=== PATIENT | female | born 1945 | race Caucasian/White ===

== ENCOUNTER 2022-01-30 17:49 | Inpatient (IN) | payer OTHER ==
[~2022-01-30] VITALS: Ht 160 cm; Wt 68.9 kg
[2022-01-30 19:40] VITALS: BP_SYST 176
[2022-01-30] MEDS ORDERED: METO25TA3 PO (19:46)
[2022-01-30] MEDS ORDERED: ATOR40TA68 PO (19:46)
[2022-01-30] MEDS ORDERED: ASPI-1393 PO (19:47)
[2022-01-30] MEDS ORDERED: FURO-150 PO (19:47)
[2022-01-30] MEDS ORDERED: HYDR25TA4 PO (19:47)
--- NOTE | 2022-01-30 19:48 | NUR ---
Patient triaged and placed in waiting room. VS CHECKED and patient appears in no acute distress at this time. Accompanied by FAMILY, awaiting available bed, and MD notified of need for MSE.
[2022-01-30 20:53] LABS: BASOPHILS # (AUTO) 0.1 K/uL (0.0-0.2); BASOPHILS % (AUTO) 0.7 % (0.0-2.0); EOSINOPHILS # (AUTO) 0.4 K/uL (0.0-0.4); HEMATOCRIT 31.7 % (36-48); HEMOGLOBIN 10.7 g/dL (12.0-16.0); LYMPHOCYTES # (AUTO) 1.7 K/uL (1.0-5.5); LYMPHOCYTES % (AUTO) 20.9 % (20.5-51.5); MEAN CORPUSCULAR HEMOGLOBIN 32 pg (27-31); MEAN CORPUSCULAR HGB CONC 34 % (32-36); MEAN CORPUSCULAR VOLUME 96 fL (79.0-98.0); MONOCYTES # (AUTO) 0.4 K/uL (0.0-1.0); NEUTROPHILS # (AUTO) 5.6 K/uL (1.8-7.7); NEUTROPHILS % (AUTO) 68.4 % (40.0-70.0); PLATELET COUNT (AUTO) 266 K/uL (130-430); RED BLOOD CELL COUNT(AUTO) 3.31 MIL/uL (4.2-6.2); RED CELL DISTRIBUTION WIDTH 14.2 % (9.0-15.0); WHITE BLOOD COUNT (AUTO) 8.2 K/uL (4.8-10.8)
[2022-01-30 20:57] LABS: ANION GAP 10 (5-15); CALCIUM 7.6 mg/dL (8.4-11.0); CHLORIDE 110 mmol/L (98-107); CREATININE 3.97 mg/dL (0.55-1.30); GLUCOSE 92 mg/dL (70-99); UREA NITROGEN, BLOOD 34 mg/dL (8-21)
[2022-01-30 21:06] LABS: ALANINE AMINOTRANSFERASE 14 U/L (12-78); ALBUMIN 1.5 g/dL (3.4-4.8); ASPARTATE AMINOTRANSFERASE 22 U/L (10-37); C-REACTIVE PROTEIN QUANT < 0.2 mg/dL (0-0.5); TOTAL BILIRUBIN 0.3 mg/dL (0.0-1.0)
[2022-01-30 21:34] LABS: ERYTHROCYTE SEDIMENTATION RATE 80 MM/HR (0-20)
--- NOTE | 2022-01-30 22:50 | NUR ---
Pt ambulatory from home with c/o BLE leg swelling + redness associated with pain that radiates to knees. Pt states she was started on Lasix 3 months ago and believes she is allergic to medication due to body itching when she takes it. Denies any SOB. Arrived to ED in no acute distress.
[2022-01-31 00:22] LABS: BILIRUBIN,URINE NEGATIVE (NEGATIVE); BLOOD, URINE 2+ (NEGATIVE); CLARITY/URINE CLEAR (CLEAR); COLOR,URINE YELLOW (YELLOW); GLUCOSE,URINE 2+ (NEGATIVE); KETONES,URINE TRACE (NEGATIVE); LEUKOCYTE ESTERASE ,URINE NEGATIVE (NEGATIVE); NITRITE, URINE NEGATIVE (NEGATIVE); PROTEIN URINE 3+ (NEGATIVE); UROBILINOGEN,URINE 0.2 (0.2-1.0)
--- NOTE | 2022-01-31 00:55 | NUR ---
# 22 gauge angiocath placed to L HAND. Use of asceptic technique. Opsite placed over site. Blood return noted. Flushed with 10 cc of normal saline. No evidence of infiltration noted. Patient tolerated well.
--- NOTE | 2022-01-31 01:14 | NUR ---
Admit bed requested Patient will be admitted to care of . Admitted to TELE unit. Diagnosis : CHF, BESS Inpatient (Yes or No) Y Observation (Yes or No) N Orientation concerns or request close to nursing station (Yes or No) N Covid Status : NEG From Home (Yes or if No enter name of facility) Y
--- NOTE | 2022-01-31 01:38 | NUR ---
Patient will be admitted to care of MD Elias. Admitted to TELE unit. Will go to room 104B. Belongings list completed. Complete and up to date summary report printed. SBAR report given at bedside to receiving LUCY Lane with opportunity for questions.
[2022-01-31 01:41] LABS: RBC,URINE 50-80 /HPF (0-3)
[2022-01-31 01:42] LABS: BACTERIA,URINE MODERATE /HPF (None Seen); WBC,URINE 20-50 /HPF (0-3)
[2022-01-31 01:43] LABS: MUCUS,URINE 1+ /LPF (None Seen)
[2022-01-31 01:50] VITALS: BP_SYST 133
--- NOTE | 2022-01-31 02:00 | NUR ---
NEW ADMISSION FROM ED,WITH A C/O OF INNA LOWER EXTRE SWOLLEN AND REDNESS ADMIT. DIAGNOSIS -- CHF AND BESS PATIENT IS AAOX4,SPEECH CLEAR AND COHERENT,DENIES PAIN AT THIS TIME. V/S BP133/79,HR 68,RR18, TEMP 97.6, 02SAT 98% ON RA ORIENTED TO ROOM, ALL IMMEDIATE NEEDS ANTICIPATED AND MET CALL LIGHT AT REACH. WILL CONTINUE TO MONITOR .
[2022-01-31 04:06] VITALS: BP_SYST 137
[2022-01-31 08:00] VITALS: BP_SYST 143
[2022-01-31 08:42] LABS: BASOPHILS # (AUTO) 0.1 K/uL (0.0-0.2); BASOPHILS % (AUTO) 1.3 % (0.0-2.0); EOSINOPHILS # (AUTO) 0.5 K/uL (0.0-0.4); EOSINOPHILS % (AUTO) 8.6 % (0.0-4.0); HEMATOCRIT 31.5 % (36-48); HEMOGLOBIN 10.6 g/dL (12.0-16.0); LYMPHOCYTES # (AUTO) 1.1 K/uL (1.0-5.5); LYMPHOCYTES % (AUTO) 19.6 % (20.5-51.5); MEAN CORPUSCULAR HEMOGLOBIN 32 pg (27-31); MEAN CORPUSCULAR HGB CONC 34 % (32-36); MEAN CORPUSCULAR VOLUME 96 fL (79.0-98.0); MONOCYTES # (AUTO) 0.4 K/uL (0.0-1.0); MONOCYTES % (AUTO) 7.6 % (1.7-9.3); NEUTROPHILS # (AUTO) 3.6 K/uL (1.8-7.7); NEUTROPHILS % (AUTO) 62.9 % (40.0-70.0); PLATELET COUNT (AUTO) 246 K/uL (130-430); RED BLOOD CELL COUNT(AUTO) 3.29 MIL/uL (4.2-6.2); RED CELL DISTRIBUTION WIDTH 14.5 % (9.0-15.0); WHITE BLOOD COUNT (AUTO) 5.7 K/uL (4.8-10.8)
--- NOTE | 2022-01-31 08:55 | NUR ---
CONSULT CARDIOLOGY CHF RIOS SCALES SENT A TEXT MESSAGE TO DR FELIPE
[2022-01-31] MEDS ORDERED: FUROSEMIDE 40 MG/4 ML VIAL IVP SCH (09:00)
[2022-01-31 09:23] LABS: ALANINE AMINOTRANSFERASE 9 U/L (12-78); ALBUMIN 1.3 g/dL (3.4-4.8); ANION GAP 11 (5-15); ASPARTATE AMINOTRANSFERASE 18 U/L (10-37); CALCIUM 7.4 mg/dL (8.4-11.0); CHLORIDE 112 mmol/L (98-107); CREATININE 3.97 mg/dL (0.55-1.30); GLUCOSE 89 mg/dL (70-99); TOTAL BILIRUBIN 0.4 mg/dL (0.0-1.0); UREA NITROGEN, BLOOD 31 mg/dL (8-21)
[2022-01-31] MEDS ORDERED: POTASSIUM CHLORIDE 20 MEQ TAB.PRT.SR PO ONE (10:30)
[2022-01-31] MEDS ORDERED: HYDROcodone/ACETAMIN 5-325 MG TAB (NORCO/ VICODIN) PO PRN (11:00)
[2022-01-31] MEDS ORDERED: HYDROcodone/ACETAMIN 10-325 MG TAB PO PRN (11:00)
[2022-01-31] MEDS ORDERED: NALOXONE HCL 0.4 MG/ML AMP (NARCAN) IVP PRN ×2 (11:00)
[2022-01-31] MEDS ORDERED: ACETAMINOPHEN 325 MG TABLET PO PRN ×2 (11:00→11:15)
[2022-01-31] MEDS ORDERED: ONDANSETRON HCL 4 MG/2 ML VIAL IVP PRN (11:00)
[2022-01-31] MEDS ORDERED: HYDROCHLOROTHIAZIDE 25 MG TABLET (HCTZ) PO ONE (11:15)
[2022-01-31] MEDS ORDERED: ASPIRIN 81 MG TABLET(ECOTRIN) PO ONE (11:15)
[2022-01-31] MEDS ORDERED: METOPROLOL SUCCINATE 25 MG TAB.SR.24H (TOPROL XL) PO ONE (11:15)
--- NOTE | 2022-01-31 11:41 | NUR ---
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
--- NOTE | 2022-01-31 11:42 | NUR ---
CONSULT ID POSSIBLE CELLULITIS DR ISSA [phone] DR SKAGGS GRINDER S/W FRANCISCO RIOS
[2022-01-31 12:00] VITALS: BP_SYST 144
[2022-01-31] MEDS ORDERED: cefTRIAXone 1 GM in D5W 50 ML IV SCH (14:00)
[2022-01-31] MEDS ORDERED: NORMAL SALINE 5 ML DISP.SYRIN IVF SCH (14:00)
[2022-01-31] MEDS: NORMAL SALINE 5 ML DISP.SYRIN IVF SCH ×2 (14:04→20:50)
[2022-01-31 16:00] VITALS: BP_SYST 151
--- NOTE | 2022-01-31 18:30 | NUR ---
Miss Landis has been assessed as indicated. She continues to deny pain. She ambulated to the restroom with a steady gait and no assistance. She tolerated lasix and IV antibiotics well. She has required and was given replacement KCL. She was visited by severall family members and is resting quietly at this time
--- NOTE | 2022-01-31 19:15 | NUR ---
hand off has been given to Alize Bowman
--- NOTE | 2022-01-31 19:15 | NUR ---
OPENING NOTES: Patient received from AM shift nurse Ashley. Patient is AA&Ox4 able to make needs known, denies any pain or distress at this time and has call light within reach. Chest rise is even and unlabored and patient is on Tele monitoring. Patient is currently stable at this time and safety measures are in place as per protocol. Will resume care and continue to monitor throughout the shift.
[2022-01-31 20:00] VITALS: BP_SYST 144
[2022-01-31] MEDS ORDERED: ATORVASTATIN 20 MG TABLET PO SCH (21:00)
[2022-02-01 00:15] VITALS: BP_SYST 144
--- NOTE | 2022-02-01 00:39 | NUR ---
PATIENT RESTING: Patient resting quietly. No acute distress noted. Vital signs within normal range.
[2022-02-01] MEDS: NORMAL SALINE 5 ML DISP.SYRIN IVF SCH (05:56)
--- NOTE | 2022-02-01 06:25 | NUR ---
CLOSING NOTES: Patient is in bed resting no s/s of distress noted at this time. Patient is AA&Ox4 able to make needs known, denies any pain or distress and has call light within reach. Patient is stable at this time, all current shift needs have been met at this time, and safety measures are in place as per protocol. Will differ further care to AM shift for continuity of care.
[2022-02-01 07:12] LABS: BASOPHILS # (AUTO) 0.1 K/uL (0.0-0.2); BASOPHILS % (AUTO) 1.2 % (0.0-2.0); EOSINOPHILS # (AUTO) 0.5 K/uL (0.0-0.4); EOSINOPHILS % (AUTO) 8.4 % (0.0-4.0); HEMATOCRIT 27.9 % (36-48); HEMOGLOBIN 9.6 g/dL (12.0-16.0); LYMPHOCYTES # (AUTO) 1.2 K/uL (1.0-5.5); MEAN CORPUSCULAR HEMOGLOBIN 33 pg (27-31); MEAN CORPUSCULAR HGB CONC 35 % (32-36); MEAN CORPUSCULAR VOLUME 95 fL (79.0-98.0); MONOCYTES # (AUTO) 0.3 K/uL (0.0-1.0); MONOCYTES % (AUTO) 5.4 % (1.7-9.3); NEUTROPHILS # (AUTO) 3.5 K/uL (1.8-7.7); PLATELET COUNT (AUTO) 243 K/uL (130-430); RED BLOOD CELL COUNT(AUTO) 2.93 MIL/uL (4.2-6.2); WHITE BLOOD COUNT (AUTO) 5.5 K/uL (4.8-10.8)
--- NOTE | 2022-02-01 08:00 | NUR ---
Miss Landis has been assessed as indicated. She continues to deny pain. She ambulates independently. She walks in the halls. Edema to BLE has decreased.
[2022-02-01 08:04] LABS: ALANINE AMINOTRANSFERASE 9 U/L (12-78); ALBUMIN 1.1 g/dL (3.4-4.8); ANION GAP 10 (5-15); ASPARTATE AMINOTRANSFERASE 15 U/L (10-37); CALCIUM 7.5 mg/dL (8.4-11.0); CHLORIDE 114 mmol/L (98-107); CREATININE 4.09 mg/dL (0.55-1.30); GLUCOSE 77 mg/dL (70-99); PHOSPHORUS 5.1 mg/dL (2.7-4.5); TOTAL BILIRUBIN 0.3 mg/dL (0.0-1.0); UREA NITROGEN, BLOOD 31 mg/dL (8-21)
[2022-02-01] MEDS ORDERED: POTASSIUM CHLORIDE 20 MEQ TAB.PRT.SR PO SCH (09:00)
[2022-02-01] MEDS ORDERED: FUROSEMIDE 20 MG TABLET PO SCH (09:00)
[2022-02-01] MEDS ORDERED: METOPROLOL SUCCINATE 25 MG TAB.SR.24H (TOPROL XL) PO SCH (09:00)
[2022-02-01] MEDS ORDERED: ASPIRIN 81 MG TABLET(ECOTRIN) PO SCH (09:00)
[2022-02-01] MEDS ORDERED: HYDROCHLOROTHIAZIDE 25 MG TABLET (HCTZ) PO SCH (09:00)
[2022-02-01 12:41] VITALS: BP_SYST 130
[2022-02-01 16:20] VITALS: BP_SYST 136
[2022-02-01] MEDS ORDERED: AMOX500C2 PO (16:33)
[2022-02-01] MEDS ORDERED: AMPICILLIN SODIUM 1 GM in NS 50 ML IV SCH (18:00)
[2022-02-01 18:16] VITALS: BP_SYST 136
--- NOTE | 2022-02-01 20:35 | NUR ---
Miss Landis has been DC to home. There is an electronic conflict with her DC RX. Dr Elias has been made aware. The patient and family patiently waited for its resolution. She has been DC without it being resolved. The conflict is with her new RX for furosemide. The family has been informed that the RX once the issue is resolved will be available at her preferred pharmacy tomorrow. her grand daughter Elsy ([phone]) will call the nurses station on [facility] if the medication is not available. At the time of DC Miss Landis had no s/s of distress or discomfort. she was compliant with the plan to DC home. IV access was removed. DC instructions were reviewed with her and her family in [place] and [place] via family. She expressed that she understood and signed a document to indicate that she understood. She was escorted to the front door via and driven home in a private vehicle.
== END 2022-02-01 20:36 | disposition home or self-care (01) | DRG 602 ==
LOC: SED 17:49 → STU 23:17
PROVIDERS: ADMIT Internal Medicine; ATTEND Internal Medicine
DX: L03.116 Cellulitis of left lower limb (principal); E43 Unspecified severe protein-calorie malnutrition; N39.0 Urinary tract infection, site not specified; N17.9 Acute kidney failure, unspecified; L03.115 Cellulitis of right lower limb; E83.51 Hypocalcemia; E87.6 Hypokalemia; D64.9 Anemia, unspecified; E66.9 Obesity, unspecified; I10 Essential (primary) hypertension; Z20.822 Contact with and (suspected) exposure to COVID-19; E88.09 Other disorders of plasma-protein metabolism, not elsewhere classified; E78.00 Pure hypercholesterolemia, unspecified; E78.5 Hyperlipidemia, unspecified; Z86.73 Personal history of transient ischemic attack (TIA), and cerebral infarction without residual deficits; Z68.26 Body mass index [BMI] 26.0-26.9, adult
CPT/HCPCS: 36415; 71045; 76770; 80053; 81000; 83735; 83880; 84100; 84484; 85025; 85651-TC; 86140; 87086; 93005; 93306; 93970; 99285; G0378; J0290; J0696; J1940; J7050; J7060